=== PATIENT | male | born 1990 | race Caucasian/White ===

== ENCOUNTER 2018-11-27 08:15 | Emergency (ER) | payer SELFPAY ==
[~2018-11-27] VITALS: Ht 165.1 cm; Wt 49.9 kg
--- NOTE | 2018-11-27 08:46 | NUR ---
For discharge- Patient discharged to home in stable condition. Written and verbal after care instructions given. Patient verbalizes understanding of instruction. Ambulatory Stable
[2018-11-27 08:47] VITALS: BP 110/78
== END 2018-11-27 08:48 | disposition home or self-care (01) ==
LOC: ER 08:17
DX: F41.9 Anxiety disorder, unspecified (principal); F12.90 Cannabis use, unspecified, uncomplicated

== ENCOUNTER 2019-08-02 21:07 | Emergency (ER) | payer SELFPAY ==
[~2019-08-02] VITALS: Ht 185.4 cm; Wt 56.7 kg
--- NOTE | 2019-08-02 21:22 | NUR ---
bibs for c/o palpitation and SOB x few hours. had fever at home. rec'd nyquil [employer]. REPORTS HAVING MOMENTS OF ANXIETY IN THE PAST. DENIES PAIN, DIZZINESS, WEAKNESS. RR EVEN AND UNLABORED AT THE TIME OF ASSESSMENT. NO ACUTE DISTRESS NOTED. ON MONITOR AND READY FOR EVAL.
[2019-08-02] MEDS ORDERED: IBUPROFEN 600 MG TABLET PO ONE ×2 (22:00→22:01)
[2019-08-02] MEDS ORDERED: IV NS 0.9% 1,000 ML BAG IV ONE (22:00)
--- NOTE | 2019-08-02 22:13 | NUR ---
IV ACCESS OBTAINED. IVF INFUSING. PT JALIL WELL
--- NOTE | 2019-08-02 22:15 | NUR ---
XRAY AT BEDSIDE
[2019-08-03 00:58] VITALS: BP 123/73
--- NOTE | 2019-08-03 00:58 | NUR ---
Patient discharged to home in stable condition. Written and verbal after care instructions given. Patient verbalizes understanding of instruction and RX. VSS. Pt ambulated with steady gait.
== END 2019-08-03 00:59 | disposition home or self-care (01) ==
LOC: ER 21:14
DX: J06.9 Acute upper respiratory infection, unspecified (principal); R00.0 Tachycardia, unspecified; R00.2 Palpitations
CPT/HCPCS: 71045; 87804 ×2; 93005; 99285; J7030

== ENCOUNTER 2019-08-22 00:13 | Emergency (ER) | payer SELFPAY ==
[~2019-08-22] VITALS: Ht 188 cm; Wt 59.0 kg
[2019-08-22 00:15] VITALS: BP 113/81
--- NOTE | 2019-08-22 00:22 | NUR ---
PT CAME INTO THE ED C/O PALPITATIONS. PT STATED HE HAD THIS ISSUE BEFORE. -SOB +DRY COUGH - FEVER. PT [id number], VSS, RR EVEN AND UNLABORED ON RA W NAD NOTED. 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
--- NOTE | 2019-08-22 01:51 | NUR ---
Patient discharged to home in stable condition. Written and verbal after care instructions given. Patient verbalizes understanding of instruction.Pt ambulatory with a steady gait
== END 2019-08-22 01:51 | disposition home or self-care (01) ==
LOC: ER 00:16
DX: R00.2 Palpitations (principal); F41.9 Anxiety disorder, unspecified
CPT/HCPCS: 71045-TC

== ENCOUNTER 2019-10-23 11:28 | Emergency (ER) | payer SELFPAY ==
[~2019-10-23] VITALS: Ht 185.4 cm; Wt 49.9 kg
[2019-10-23 11:30] VITALS: BP 116/71
--- NOTE | 2019-10-23 12:06 | NUR ---
Patient discharged to home in stable condition. Written and verbal after care instructions given. Patient verbalizes understanding of instruction.
== END 2019-10-23 12:06 | disposition home or self-care (01) ==
LOC: ER 11:30
DX: R11.0 Nausea (principal); R19.7 Diarrhea, unspecified; R53.83 Other fatigue; R64 Cachexia